=== PATIENT | female | born 1935 | race African-American/Black ===

== ENCOUNTER 2016-12-31 04:12 | Emergency (ER) | payer MEDICARE, BC ==
[~2016-12-31] VITALS: Ht 160 cm; Wt 70.5 kg
[2016-12-31] MEDS ORDERED: SODIUM CHLORIDE 0.9% 500 ML IV ONE (06:26)
[2016-12-31 06:53] LABS: BASOPHILS % 1.2 % (0.0-2.0); EOSINOPHILS % 1.9 % (0.0-5.0); HEMATOCRIT. 34.2 % (36.0-48.0); HEMOGLOBIN. 11.5 g/dL (12.0-16.0); LYMPHOCYTES % 12.8 % (20.0-50.0); MEAN CORPUSCULAR HEMOGLOBIN 28.9 pg (28.0-32.0); MEAN CORPUSCULAR VOLUME 85.6 fL (81.0-99.0); MONOCYTES % 8.2 % (2.0-8.0); NEUTROPHILS % 75.9 % (40.0-76.0); PLATELET 247 x1000/uL (130-400); RED BLOOD CELL COUNT 3.99 mill/uL (4.2-5.4)
[2016-12-31 06:56] LABS: CHLORIDE 91 mEq/L (98-107)
[2016-12-31 06:59] LABS: INR 1.1; PARTIAL THROMBOPLASTIN TIME 28.1 sec (23.4-31.0); PROTHROMBIN TIME 11.2 sec (9.4-11.6)
[2016-12-31 07:12] LABS: CARBON DIOXIDE 28 mEq/L (21-32); CREATINE KINASE MB FRACTION 1.7 ng/mL (0.5-3.6)
[2016-12-31] MEDS ORDERED: MECLIZINE 25MG TABLET PO ONE (07:30)
[2016-12-31] MEDS ORDERED: POTASSIUM CHLORIDE 20MEQ TABLET SR PO ONE (08:15)
[2016-12-31 10:25] VITALS: BP 142/82
== END 2016-12-31 10:55 | disposition home or self-care (01) ==
LOC: ER 07:54
DX: R42 Dizziness and giddiness (principal); I10 Essential (primary) hypertension; E87.8 Other disorders of electrolyte and fluid balance, not elsewhere classified; E78.00 Pure hypercholesterolemia, unspecified; D64.9 Anemia, unspecified
CPT/HCPCS: 36415; 70450; 71010; 80048; 82553; 83735; 83880; 85025; 85610; 85730; 93005; 96360; 96361; 99285; J7040; J8597

== ENCOUNTER 2017-12-02 19:25 | Emergency (ER) | payer MEDICARE, BC ==
[~2017-12-02] VITALS: Ht 160 cm; Wt 78.0 kg
[2017-12-03 04:59] LABS: BASOPHILS % 0.9 % (0.0-2.0); EOSINOPHILS % 2.7 % (0.0-5.0); HEMATOCRIT. 41.3 % (36.0-48.0); HEMOGLOBIN. 13.7 g/dL (12.0-16.0); LYMPHOCYTES % 20.6 % (20.0-50.0); MEAN CORPUSCULAR HEMOGLOBIN 28.6 pg (28.0-32.0); MEAN PLATELET VOLUME 7.2 fl (7.4-10.4); MONOCYTES % 8.2 % (2.0-8.0); NEUTROPHILS % 67.6 % (40.0-76.0); PLATELET 286 x1000/uL (130-400)
[2017-12-03 05:04] LABS: CHLORIDE 104 mEq/L (98-107)
[2017-12-03 05:08] LABS: ETHANOL BLOOD < 10 mg/dL
[2017-12-03 07:09] LABS: CLARITY URINE CLEAR (CLEAR); COLOR URINE YELLOW (YELLOW); KETONES URINE NEGATIVE (NEGATIVE); LEUKOCYTE ESTERASE URINE TRACE (NEGATIVE); NITRITE URINE NEGATIVE (NEGATIVE); OCCULT BLOOD URINE TRACE (NEGATIVE); PH URINE 5.5 (4.5-8.0); PROTEIN URINE NEGATIVE (NEGATIVE)
[2017-12-03 07:31] LABS: *AMPHETAMINES SCREEN URINE NEGATIVE (NEGATIVE); *BARBITURATES SCREEN URINE NEGATIVE (NEGATIVE); *BENZODIAZEPINES SCREEN URINE NEGATIVE (NEGATIVE); *COCAINE SCREEN URINE NEGATIVE (NEGATIVE); METHADONE URINE SCREEN NEGATIVE (NEGATIVE)
[2017-12-03 07:32] LABS: CANNABINOID URINE SCREEN NEGATIVE (NEGATIVE); OPIATES URINE SCREEN NEGATIVE (NEGATIVE); PHENCYCLIDINE URINE SCREEN NEGATIVE (NEGATIVE)
[2017-12-03 09:00] VITALS: BP 129/92
== END 2017-12-03 09:25 | disposition home or self-care (01) ==
LOC: ER 19:25
DX: R42 Dizziness and giddiness (principal); N39.0 Urinary tract infection, site not specified; R68.2 Dry mouth, unspecified; H92.03 Otalgia, bilateral; R63.0 Anorexia; E78.00 Pure hypercholesterolemia, unspecified
CPT/HCPCS: 36415; 71045; 80053; 80305; 81003; 84484; 85025; 87070; 87077; 87186; 87205; 93005; 99285; G0482